=== PATIENT | female | born 1995 | race Two or more races ===

== ENCOUNTER 2019-01-30 14:14 | Emergency (ER) | payer OTHER ==
[~2019-01-30] VITALS: Ht 167.6 cm; Wt 32.7 kg
--- NOTE | 2019-01-30 14:21 | NUR ---
[id number], FROM THE CLINIC, C/O ABD PAIN, +N/V, DIARRHEA x 1 WEEK, TO ER BED 3, HOOKED TO MONITOR, CHANGED TO GOWN, PROVIDED W WARM BLANKET, AWAITING MD EDMOND.
[2019-01-30] MEDS ORDERED: ONDANSETRON HCL/PF 4 MG/2 ML VIAL IVP ONE (14:30)
[2019-01-30] MEDS ORDERED: IV NS 0.9% 1,000 ML BAG IV ONE (14:30)
[2019-01-30] MEDS ORDERED: KETOROLAC TROMETHAMINE INJ 30 MG/ML VIAL IV ONE ×2 (14:30→17:00)
[2019-01-30 14:37] LABS: BASOPHILS # (AUTO) 0.1 /CMM (0.0-0.2); BASOPHILS % (AUTO) 0.6 % (0.0-2.0); HEMATOCRIT 44 % (33-45); HEMOGLOBIN 14.6 g/dL (11.5-14.8); LYMPHOCYTES # (AUTO) 1.9 /CMM (0.8-4.8); LYMPHOCYTES % (AUTO) 18.7 % (20.0-44.0); MEAN CORPUSCULAR HGB CONC 34 g/dl (31.0-36.0); MEAN CORPUSCULAR VOLUME 85 fL (82-100); MONOCYTES # (AUTO) 0.4 /CMM (0.1-1.30); MONOCYTES % (AUTO) 3.7 % (2.0-12.0); PLATELET COUNT (AUTO) 349 /CMM (150-450); RED BLOOD CELL COUNT(AUTO) 5.14 MIL/uL (4.0-5.2); WHITE BLOOD COUNT (AUTO) 10.3 K/uL (4.3-11.0)
[2019-01-30] MEDS ORDERED: ONDANSETRON HCL/PF 4 MG/2 ML VIAL ONE (14:41)
[2019-01-30 14:45] LABS: CALCIUM, SERUM 9.5 mg/dL (8.5-10.1); CREATININE 0.9 mg/dL (0.6-1.3); POTASSIUM 2.9 mmol/L (3.5-5.1)
[2019-01-30 14:50] LABS: ALBUMIN 4.3 g/dL (3.4-5.0); BILIRUBIN,DIRECT 0.1 mg/dL (0.0-0.2); BILIRUBIN,TOTAL 0.5 mg/dL (0.2-1.0); TOTAL PROTEIN, SERUM 7.6 g/dL (6.4-8.2)
--- NOTE | 2019-01-30 15:01 | NUR ---
PT NOT ABLE TO PROVIDE URINE SAMPLE, MADE LIZA KU AWARE
[2019-01-30] MEDS ORDERED: POTASSIUM CHLORIDE 20 MEQ TAB.PRT.SR PO ONE ×2 (15:30→16:21)
--- NOTE | 2019-01-30 16:07 | NUR ---
URINE SAMPLE SENT TO LAB.
[2019-01-30 16:19] LABS: APPEARANCE,URINE Clear (CLEAR); BILIRUBIN,URINE Negative (NEGATIVE); BLOOD, URINE Negative Ery/uL (NEGATIVE); COLOR,URINE Yellow (YELLOW); KETONES,URINE Negative (NEGATIVE); LEUKOCYTE ESTERASE ,URINE Negative (NEGATIVE); NITRITE, URINE Negative (NEGATIVE); PROTEIN,URINE 100 mg/dl (NEGATIVE); UGLUCOSE Negative (NEGATIVE); UROBILINOGEN,URINE 0.2 EU/dL (0.2)
[2019-01-30] MEDS ORDERED: KETOROLAC TROMETHAMINE 15 MG/ML VIAL ONE (16:39)
--- NOTE | 2019-01-30 17:41 | NUR ---
SPOKE TO MAK ([employer] OF [facility]) [phone], PREFFERED HOSPITAL: [facility]. MAK WILL CALL BACK FOR CONFIRMATION.
--- NOTE | 2019-01-30 17:55 | NUR ---
REGAL WILL CALL BACK WITH UPDATE IF PT CAN BE ACCEPTED AT [facility]
--- NOTE | 2019-01-30 18:27 | NUR ---
PT COMPLAINED OF BODY ACHE, MADE LIZA KU AWARE, RECEIVED VERBAL ORDER OF TYLENOL 1000MG PO. CARRIED OUT.
[2019-01-30] MEDS ORDERED: ACETAMINOPHEN ES 500 MG TABLET ONE ×2 (18:29→22:20)
[2019-01-30] MEDS ORDERED: ACETAMINOPHEN 325 MG TABLET PO ONE (18:30)
[2019-01-30 19:35] LABS: CALCIUM, SERUM 8.1 mg/dL (8.5-10.1); CREATININE 0.7 mg/dL (0.6-1.3); POTASSIUM 3.2 mmol/L (3.5-5.1)
--- NOTE | 2019-01-30 19:35 | NUR ---
REPORT GIVEN TO SOHAN CANAS FOR SNOW
--- NOTE | 2019-01-30 19:39 | NUR ---
AWAITING TRANSFER INFO FROM RAMY WALTERS
[2019-01-30 20:10] VITALS: BP 94/63
--- NOTE | 2019-01-30 20:40 | NUR ---
ADE INFO: RAMY WALTERS DIRECT ADMIT TO ROOM 1210-2 RN FOR REPORT [phone] EXT [id number] TRANSPORTATION ETA TO FOLLOW
--- NOTE | 2019-01-30 20:50 | NUR ---
REPORT GIVEN TO MIKEY CANAS AT [facility]
--- NOTE | 2019-01-30 22:00 | NUR ---
CALL FROM [facility]. [facility] ETA [id number]
== END 2019-01-31 00:29 | disposition home or self-care (01) ==
LOC: ER 14:20
DX: R10.84 Generalized abdominal pain (principal); I48.91 Unspecified atrial fibrillation; E87.6 Hypokalemia; F19.10 Other psychoactive substance abuse, uncomplicated; I45.81 Long QT syndrome
CPT/HCPCS: 36415; 76705; 80048 ×2; 80076; 81001; 83690; 83735; 84703; 85025; 87081; 93005; 96361; 96374; 96375; 99284; J1885; J2405; J7030; 81000-TC